=== PATIENT | male | born 1950 ===

== ENCOUNTER 2017-09-16 10:42 | Day surgery (SDC) | payer OTHER ==
[2017-09-16] MEDS ORDERED: Lactated Ringer's 500 ML IV ONE (10:55)
[2017-09-16] MEDS ORDERED: Lidocaine PF 2% (5 ml) Inj (For Cardiac Arrhy) IV ONE (11:18)
[2017-09-16] MEDS ORDERED: Propofol 10 mg/ml Inj (20 ML) ONE ×2 (11:18→11:58)
[2017-09-16 11:20] VITALS: TEMP 96.8
[2017-09-16 12:10] VITALS: O2SAT 98
[2017-09-16 12:31] VITALS: BP 134/78; PULSE 61; RESP 16
== END 2017-09-16 13:00 | disposition home or self-care (01) ==
LOC: H.ENDO 10:42
PROVIDERS: ATTEND Internal Medicine Gastroenterology
DX: D12.4 Benign neoplasm of descending colon (principal); K63.5 Polyp of colon; K62.1 Rectal polyp; K57.30 Diverticulosis of large intestine without perforation or abscess without bleeding; R19.5 Other fecal abnormalities; I10 Essential (primary) hypertension
CPT/HCPCS: 45380; 82948; 88305; J2704; J7120